=== PATIENT | male | born 1945 | race Caucasian/White ===

== ENCOUNTER 2020-01-05 16:43 | Emergency (ER) | payer OTHER ==
[~2020-01-05] VITALS: Ht 177.8 cm; Wt 90.0 kg
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
[2020-01-05] MEDS ORDERED: DIPH,PERTUSS(ACELL),TET VAC/PF 0.5 ML IM-VACC ONE ×2 (17:30→17:33)
[2020-01-05] MEDS ORDERED: PLEASE ENTER ALLERGIES MC SCH (17:30)
[2020-01-05] MEDS ORDERED: LIDOCAINE-MPF 1%, 5ML ONE (17:32)
--- NOTE | 2020-01-05 18:09 | NUR ---
PT SITTING ON GURNEY WATCHING TV, NAD. PT APPLYING ICE TO RIGHT LOWER LEG WITH SOME RELIEF. NO NEEDS AT THIS TIME. CALL LIGHT WITHIN REACH, FALL PRECAUTIONS IN PLACE.
--- NOTE | 2020-01-05 18:50 | NUR ---
REPORT TO NOC RN, DENISE
--- NOTE | 2020-01-05 18:51 | NUR ---
BEDSIDE REPORT FROM ALLIE CHAMPION. Addendum: 01/05/20 at 1851 by ALTA CHERI. CALL LIGHT IN REACH. ALL NEEDS MET.
[2020-01-05 19:45] VITALS: BP 161/88
[2020-01-05] MEDS ORDERED: NEOSPORIN OINT. PKT 1 PACKET ONE (19:56)
== END 2020-01-05 20:08 | disposition home or self-care (01) ==
LOC: ED 20:00
DX: S01.112A Laceration without foreign body of left eyelid and periocular area, initial encounter (principal); S80.11XA Contusion of right lower leg, initial encounter; S40.212A Abrasion of left shoulder, initial encounter; S80.212A Abrasion, left knee, initial encounter; S09.90XA Unspecified injury of head, initial encounter; V03.99XA Pedestrian with other conveyance injured in collision with car, pick-up truck or van, unspecified whether traffic or nontraffic accident, initial encounter; Y93.89 Activity, other specified; Y92.009 Unspecified place in unspecified non-institutional (private) residence as the place of occurrence of the external cause; Y99.8 Other external cause status
CPT/HCPCS: 12041; 70450; 72125; 99285

== ENCOUNTER 2020-01-11 09:44 | Emergency (ER) | payer OTHER ==
[~2020-01-11] VITALS: Ht 177.8 cm; Wt 89.0 kg
[2020-01-11 09:50] VITALS: BP 183/75
[2020-01-11] MEDS ORDERED: NEOSPORIN OINT. PKT 1 PACKET ONE (10:27)
--- NOTE | 2020-01-11 10:43 | NUR ---
6 SUTURES REMOVED FROM LEFT BROW WITHOUT DIFFICULTY, THEN NEOSPORIN APPLIED
== END 2020-01-11 10:45 | disposition home or self-care (01) ==
LOC: ED 10:00
DX: S01.111D Laceration without foreign body of right eyelid and periocular area, subsequent encounter (principal); X58.XXXD Exposure to other specified factors, subsequent encounter
CPT/HCPCS: 99281